=== PATIENT | male | born 1960 | race Caucasian/White ===

== ENCOUNTER 2024-03-14 13:12 | Emergency (ER) | payer MEDICARE, OTHER ==
[~2024-03-14] VITALS: Ht 175.3 cm; Wt 126.1 kg
[2024-03-14] MEDS ORDERED: IOHEXOL-350 100 ML VIAL IV ONE ×2 (13:23→13:32)
[2024-03-14] MEDS ORDERED: IV NS 0.9% 250 ML IV ONE (13:23)
[2024-03-14 13:33] LABS: BASOPHILS % (AUTO) 0.4 % (0.0-2.0); EOSINOPHILS # (AUTO) 0.1 K/uL (0.0-0.7); EOSINOPHILS % (AUTO) 1.2 % (0.0-6.0); HEMATOCRIT 38 % (39-51); HEMOGLOBIN 12.3 g/dL (13.5-17.5); LYMPHOCYTES # (AUTO) 1.7 K/uL (0.8-4.8); LYMPHOCYTES % (AUTO) 17.4 % (20.0-44.0); MEAN CORPUSCULAR HEMOGLOBIN 28 PG (26.0-33.0); MEAN CORPUSCULAR HGB CONC 33 g/dl (31.0-36.0); MEAN CORPUSCULAR VOLUME 84 fL (80-96); MONOCYTES # (AUTO) 0.9 K/uL (0.1-1.30); MONOCYTES % (AUTO) 8.9 % (2.0-12.0); NEUTROPHILS # (AUTO) 7.1 K/uL (1.8-8.9); NEUTROPHILS % (AUTO) 72.1 % (43.0-81.0); PLATELET COUNT (AUTO) 206 K/uL (150-450); RED BLOOD CELL COUNT(AUTO) 4.47 MIL/uL (4.5-6.0); RED CELL DISTRIBUTION WIDTH 14.8 % (11.5-15.0); WHITE BLOOD COUNT (AUTO) 9.9 K/uL (4.3-11.0)
[2024-03-14 13:46] LABS: INR 1.06 (0.91-1.10); PARTIAL THROMBOPLASTIN TIME 25.9 SEC (24.3-34.3); PROTHROMBIN TIME 10.9 SECS (9.2-11.1)
[2024-03-14 13:52] LABS: CALCIUM, SERUM 8.6 mg/dL (8.5-10.1); CARBON DIOXIDE 26 mmol/L (21-32); CHLORIDE 106 mmol/L (98-107); CREATININE 1.6 mg/dL (0.6-1.3); GLUCOSE 143 mg/dL (74-106); POTASSIUM 4.2 mmol/L (3.5-5.1); SODIUM SERUM 138 mmol/L (136-145); UREA NITROGEN, BLOOD 21 mg/dL (7-18)
[2024-03-14 13:57] LABS: ALANINE AMINOTRANSFERASE 25 U/L (12-78); ALBUMIN 3.3 g/dL (3.4-5.0); ALKALINE PHOSPHATASE 72 U/L (46-116); ASPARTATE AMINOTRANSFERASE 14 U/L (15-37); BILIRUBIN,DIRECT 0.2 mg/dL (0.0-0.2); BILIRUBIN,TOTAL 0.7 mg/dL (0.2-1.0); TOTAL PROTEIN, SERUM 6.9 g/dL (6.4-8.2)
[2024-03-14] MEDS: IV NS 0.9% 1,000 ML BAG IV ONE (14:07)
[2024-03-14] MEDS: NOREPINEPHRINE 8 MG in IV NS 0.9% 250 ML IV ONE (14:30)
[2024-03-14] MEDS ORDERED: ASPIRIN 81 MG TAB.CHEW ONE (14:44)
[2024-03-14] MEDS ORDERED: CLOPIDOGREL BISULFATE 75 MG TABLET ONE (14:44)
[2024-03-14] MEDS: CLOPIDOGREL BISULFATE 300 MG TABLET PO ONE (14:47)
[2024-03-14] MEDS: ASPIRIN 81 MG TAB.CHEW PO ONE (14:48)
[2024-03-14 16:15] VITALS: TEMP 98.1
[2024-03-14 17:20] VITALS: BP 116/67; O2SAT 96
== END 2024-03-14 17:41 | disposition short-term general hospital (02) ==
LOC: ER 13:12
DX: I67.82 Cerebral ischemia (principal)
CPT/HCPCS: 99291; 70498; 96360; 71045; 93005; 70496; 82140; 85025; 80048; 80076; 36415; 84484; 85730; 70450; J7030; J7050 ×2; A4223; Q9967 ×2